=== PATIENT | male | born 1950 | race Caucasian/White ===

== ENCOUNTER 2024-05-21 14:00 | Inpatient (IN) | payer MEDICARE ==
[~2024-05-21] VITALS: Ht 170.2 cm; Wt 64.4 kg
[2024-05-21] MEDS ORDERED: AMLO10TA59 PO (14:32)
[2024-05-21] MEDS ORDERED: TRAZ-182 PO (14:32)
[2024-05-21] MEDS ORDERED: OXCA300T15 PO (14:32)
[2024-05-21] MEDS ORDERED: ACET-3117 PO (14:32)
[2024-05-21] MEDS ORDERED: DOCU100T2 PO (14:32)
[2024-05-21] MEDS ORDERED: MAG-151 PO (14:32)
[2024-05-21] MEDS ORDERED: DONE10TA44 PO (14:32)
[2024-05-21] MEDS ORDERED: RISP2TAB5 PO (14:32)
[2024-05-21 14:39] LABS: BASOPHILS % (AUTO) 0.5 % (0.0-2.0); EOSINOPHILS % (AUTO) 0.8 % (0.0-7.0); HEMATOCRIT 38.2 % (36.7-47.1); HEMOGLOBIN 12.6 g/dL (12.5-16.3); LYMPHOCYTES # (AUTO) 0.6 K/uL (0.8-4.8); LYMPHOCYTES % (AUTO) 14.4 % (20.5-51.5); MEAN CORPUSCULAR HEMOGLOBIN 28.9 uug (23.8-33.4); MEAN CORPUSCULAR HGB CONC 33 g/dL (32.5-36.3); MEAN CORPUSCULAR VOLUME 87.9 fL (73.0-96.2); MONOCYTES # (AUTO) 0.3 K/uL (0.1-1.30); MONOCYTES % (AUTO) 6.8 % (0.0-11.0); NEUTROPHILS # (AUTO) 3.4 K/uL (1.8-8.9); NEUTROPHILS % (AUTO) 77.5 % (38.5-71.5); PLATELET COUNT (AUTO) 119 K/uL (152-348); RED BLOOD CELL COUNT(AUTO) 4.35 MIL/uL (4.06-5.63); RED CELL DISTRIBUTION WIDTH 16.1 % (12.1-16.2); WHITE BLOOD COUNT (AUTO) 4.4 K/uL (3.6-10.2)
[2024-05-21 14:48] LABS: CALCIUM 8.8 mg/dL (8.5-10.1); CARBON DIOXIDE 29 mmol/L (21-32); CHLORIDE 106 mmol/L (98-107); CREATININE 0.9 mg/dL (0.6-1.3); GLUCOSE 98 mg/dL (74-106); SODIUM SERUM 141 mmol/L (136-145); UREA NITROGEN, BLOOD 10 mg/dL (7-18)
[2024-05-21 14:50] LABS: AMMONIA < 10 umol/L (11-32)
[2024-05-21 14:52] LABS: *BILIRUBIN,URIN NEGATIVE (NEGATIVE); *BLOOD, URINE NEGATIVE (NEGATIVE); *CLARITY,URINE CLEAR (CLEAR); *COLOR,URINE YELLOW (YELLOW); *KETONES,URINE NEGATIVE (NEGATIVE); *PROTEIN,URINE NEGATIVE (NEGATIVE); *UROBILINOGEN,URINE 0.2 E.U./dl (NORMAL); LEUKOCYTE ESTERASE ,URINE NEGATIVE (NEGATIVE); NITRITE, URINE NEGATIVE (NEGATIVE); UGLUCOSE NEGATIVE (NEGATIVE)
[2024-05-21 14:55] LABS: ALANINE AMINOTRANSFERASE 26 U/L (16-63); ALBUMIN 3.3 g/dL (3.4-5.0); ALKALINE PHOSPHATASE 153 U/L (50-136); ASPARTATE AMINOTRANSFERASE 27 U/L (15-37); BILIRUBIN,DIRECT 0.1 mg/dL (0.0-0.2); BILIRUBIN,TOTAL 0.3 mg/dL (0.2-1.0); TOTAL PROTEIN, SERUM 6.9 g/dL (6.4-8.2)
[2024-05-21 14:56] LABS: ACETAMINOPHEN < 2.0 ug/mL (10-30)
[2024-05-21 14:58] LABS: *AMPHETAMINE, URINE NEGATIVE (NEGATIVE); *BARBITURATE, URINE NEGATIVE (NEGATIVE); *BENZODIAZEPINE, URINE NEGATIVE (NEGATIVE); *CANNABINOID, URINE NEGATIVE (NEGATIVE); *COCCAINE, URINE NEGATIVE (NEGATIVE); *OPIATE, URINE NEGATIVE (NEGATIVE); *PHENCYCLIDINE SCREEN,URINE NEGATIVE (NEGATIVE); FENTANYL, URINE NEGATIVE (NEGATIVE)
[2024-05-21 15:00] LABS: DIFFERENTIAL COMMENT 1
[2024-05-21 15:21] LABS: ETHANOL < 3 MG/DL (0-10)
[2024-05-21 15:34] LABS: THYROID STIMULATING HORMONE 0.894 mIU/mL (0.358-3.740)
[2024-05-21 19:44] VITALS: BP 127/75; TEMP 98; O2SAT 98
[2024-05-21] MEDS ORDERED: LORAZEPAM 0.5 MG TABLET PO PRN ×2 (20:00)
[2024-05-21] MEDS ORDERED: ACETAMINOPHEN 325 MG TABLET PO PRN (20:00)
[2024-05-21] MEDS ORDERED: ZOLPIDEM 5 MG TABLET PO PRN ×2 (20:00)
[2024-05-21] MEDS ORDERED: MAGNESIUM HYDROXIDE 30 ML LIQUID UDC PO PRN (20:00)
[2024-05-21] MEDS ORDERED: MAG HYDROX/AL HYDROX/SIMETH 30 ML LIQUID UDC PO PRN (20:00)
[2024-05-21] MEDS: BLOOD SUGAR DIAGNOSTIC 1 EACH STRIP VI ONE (20:55)
[2024-05-21] MEDS: DOCUSATE SODIUM 100 MG CAPSULE PO SCH (21:00)
[2024-05-22] MEDS: AMLODIPINE 10 MG TABLET PO SCH (09:00)
[2024-05-22] MEDS: OXCARBAZEPINE 300 MG TABLET PO SCH (09:09)
[2024-05-22] MEDS ORDERED: LORAZEPAM 0.5 MG TABLET PO PRN (09:30)
[2024-05-22] MEDS ORDERED: LORAZEPAM 1 MG TABLET PO PRN (09:45)
[2024-05-22] MEDS: risperiDONE 1 MG TABLET PO SCH (10:22)
[2024-05-22 15:25] VITALS: BP 109/72; TEMP 98; O2SAT 98
[2024-05-22 19:56] VITALS: BP 105/90; TEMP 97.4; O2SAT 100
[2024-05-23 08:16] VITALS: BP 106/63; TEMP 98.3; O2SAT 97
[2024-05-23] MEDS: ENSURE ENLIVE (VAN) 240 ML LIQUID PO SCH (08:23)
[2024-05-23 16:24] VITALS: BP 114/57; TEMP 97.8; O2SAT 99
[2024-05-23 20:04] VITALS: BP 112/56; TEMP 97.9; O2SAT 98
[2024-05-24 07:53] VITALS: BP 98/55; TEMP 98; O2SAT 98
[2024-05-24 15:08] VITALS: BP 97/49; TEMP 98; O2SAT 97
[2024-05-24 20:19] VITALS: BP 109/52; TEMP 97.1; O2SAT 96
[2024-05-25 08:04] VITALS: BP 112/61; TEMP 98.2; O2SAT 98
[2024-05-25 15:12] VITALS: BP 108/46; TEMP 98.2; O2SAT 98
[2024-05-25 19:54] VITALS: BP 110/50; TEMP 98.1; O2SAT 98
[2024-05-26 08:18] VITALS: BP 133/61; TEMP 98.8; O2SAT 97
[2024-05-26] MEDS: ESCITALOPRAM OXALATE 10 MG TABLET PO SCH (12:20)
[2024-05-26 16:12] VITALS: TEMP 98.3; O2SAT 99
[2024-05-27 08:12] VITALS: BP 136/66; TEMP 97.6; O2SAT 98
[2024-05-27 16:48] VITALS: BP 103/42; TEMP 98; O2SAT 98
[2024-05-27 19:40] VITALS: BP 101/49; TEMP 98.6; O2SAT 96
[2024-05-28 10:31] VITALS: BP 112/56; TEMP 98.2; O2SAT 98
[2024-05-28 15:13] VITALS: BP 113/50; TEMP 98.2; O2SAT 98
[2024-05-28] MEDS: PALIPERIDONE PALMITATE 234 MG/1.5 ML SYRINGE IM ONE (15:20)
[2024-05-28 19:55] VITALS: BP 120/54; TEMP 98.1; O2SAT 96
[2024-05-29 08:08] VITALS: BP 112/57; TEMP 98.2; O2SAT 98
[2024-05-29 15:23] VITALS: BP 97/53; TEMP 98; O2SAT 96
[2024-05-29 21:34] VITALS: BP 103/54; TEMP 98; O2SAT 98
[2024-05-30 08:14] VITALS: BP 136/70; TEMP 98.3; O2SAT 97
[2024-05-30 16:21] VITALS: BP 119/63; TEMP 98.6; O2SAT 97
[2024-05-30 19:56] VITALS: BP 130/64; TEMP 98.1; O2SAT 98
[2024-05-31 08:49] VITALS: BP 100/57; TEMP 98.2; O2SAT 98
[2024-05-31 15:27] VITALS: BP 111/47; TEMP 98; O2SAT 96
[2024-05-31 19:42] VITALS: BP 100/51; TEMP 98.2; O2SAT 99
[2024-06-01 07:30] VITALS: BP 108/57; TEMP 98; O2SAT 98
[2024-06-01 17:02] VITALS: BP 114/49; TEMP 97.6; O2SAT 98
[2024-06-01 20:16] VITALS: BP 112/51; TEMP 98; O2SAT 98
[2024-06-02 08:16] VITALS: BP 113/48; TEMP 97.9; O2SAT 96
[2024-06-02 08:44] VITALS: BP 113/48
[2024-06-04] MEDS ORDERED: PALIPERIDONE PALMITATE 156 MG/ML SYRINGE IM SCH (09:00)
== END 2024-06-02 11:00 | DRG 885 ==
LOC: ER 14:14 → GPS 18:07
PROVIDERS: ADMIT Psychiatry & Neurology Psychiatry; ATTEND Nurse Practitioner Acute Care
DX: F20.0 Paranoid schizophrenia (principal); F03.911 Unspecified dementia, unspecified severity, with agitation; E44.1 Mild protein-calorie malnutrition; J98.19 Other pulmonary collapse; F03.93 Unspecified dementia, unspecified severity, with mood disturbance; F03.92 Unspecified dementia, unspecified severity, with psychotic disturbance; I69.351 Hemiplegia and hemiparesis following cerebral infarction affecting right dominant side; F03.94 Unspecified dementia, unspecified severity, with anxiety; G93.40 Encephalopathy, unspecified; I69.320 Aphasia following cerebral infarction; F32.9 Major depressive disorder, single episode, unspecified; G40.909 Epilepsy, unspecified, not intractable, without status epilepticus; E88.09 Other disorders of plasma-protein metabolism, not elsewhere classified; G93.89 Other specified disorders of brain; R26.81 Unsteadiness on feet; I45.6 Pre-excitation syndrome; K74.60 Unspecified cirrhosis of liver; R91.8 Other nonspecific abnormal finding of lung field; M62.81 Muscle weakness (generalized); I10 Essential (primary) hypertension; K76.89 Other specified diseases of liver
CPT/HCPCS: 36415; 70450; 71045; 71250; 83605; 84443; 84484; 85025; 85730; 87040; 87086; A4606; A4663; G0480; J2426